=== PATIENT | female | born 1940 | race Caucasian/White ===

== ENCOUNTER 2018-07-22 08:57 | Day surgery (SDC) | payer BC, MEDICARE ==
[~2018-07-22 08:57] MED LIST: Buffered Lidocaine 1% SYRIN* 1 ML/SYRINGE INTRADERM ONE; Famotidine IV* 10 MG/ML 2 ML (20 mg) IV ONE; Lactated Ringers 1000 ML Bag* 1,000 ML IV SCH
[2018-07-22] MEDS ORDERED: Famotidine IV* 10 MG/ML 2 ML (20 mg) ONE (10:03)
[2018-07-22] MEDS ORDERED: Midazolam* 1 MG/ML 5 ML VIAL (5 MG) ONE (10:09)
[2018-07-22] MEDS ORDERED: fentaNYL* 50 MCG/ML 2 ML VIAL (100 MCG VIAL) ONE (10:09)
[2018-07-22] MEDS ORDERED: Benzocaine/Butamben/Tetracain (CETACAINE - SINGLE USE) 5 gm TOPICAL ONE (11:42)
[2018-07-22] MEDS ORDERED: Lidocaine 2% PF* 10 ML AMP ONE (11:43)
[2018-07-22] MEDS ORDERED: Lidocaine 1% INJ* 10 MG/ML 30 ML SDV ONE (12:07)
[2018-07-22] MEDS ORDERED: Lidocaine 2% JELLY* 20 ML (for OR use) ONE (12:07)
[2018-07-22] MEDS ORDERED: Lidocaine 4% TOPICAL* 50 ML TOP.SOLN ONE (12:10)
[2018-07-22] MEDS ORDERED: Midazolam* 1 MG/ML 2 ML VIAL (2 MG) ONE (12:26)
[2018-07-22] MEDS ORDERED: Ondansetron INJ* 2 MG/ML VIAL ONE (12:26)
[2018-07-22] MEDS ORDERED: Dexamethasone IV* 4 MG/ML 1 ML (4 MG) ONE (12:26)
[2018-07-22 15:26] VITALS: BP 120/68
--- NOTE | 2018-07-22 17:37 | PRO ---
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 ANESTHESIA: Conscious sedation. ANESTHESIOLOGIST: Dr. Robbins. DESCRIPTION OF PROCEDURE: Informed consent was obtained from the patient prior to the procedure after all the risks and benefits were thoroughly explained. Appropriate time-out was agreed on by the attending staff. A flexible Olympus bronchoscope was inserted through the right naris after adequate anesthesia with lidocaine was achieved using viscous lidocaine and lidocaine spray. The patient had significant epistaxis when bronchoscope was inserted through the right naris. Bronchoscope was withdrawn as this was affecting the patient's oxygenation. Once the patient's bleeding stopped and the patient was stabilized , bronchoscope was subsequently inserted through the mouth. Vocal cords were easily accessed and airway inspection was performed. No endobronchial lesions were noted. Thin secretions were noted, which were suctioned out. BAL was obtained from right middle lobe. Rest of the blood and blood clots were all suctioned out. The patient did not have any further bleeding while being monitored postprocedure. The patient was titrated off oxygen with O2 saturations 90% to 92% at rest. The patient subsequently was discharged home with appropriate discharge instructions accompanied by her son. [id number]/[facility] #: [id number] MTDD
== END 2018-07-22 15:29 | disposition home or self-care (01) ==
LOC: OR 08:57
PROVIDERS: ATTEND Internal Medicine
DX: J98.4 Other disorders of lung (principal); J47.9 Bronchiectasis, uncomplicated; J44.9 Chronic obstructive pulmonary disease, unspecified; I48.91 Unspecified atrial fibrillation; I42.9 Cardiomyopathy, unspecified; I27.20 Pulmonary hypertension, unspecified; I08.1 Rheumatic disorders of both mitral and tricuspid valves; G47.33 Obstructive sleep apnea (adult) (pediatric)
CPT/HCPCS: 87206; J1100; J2001; J2250; J2405; J3010

== ENCOUNTER 2019-08-07 07:39 | Inpatient (IN) ==
[2019-08-07 10:26] LABS: Calcium 9.7 mg/dL (8.6-10.3); EGFR African American 64.6 (>60); EGFR Non-African American 53.3 (>60); Potassium 4.6 mmol/L (3.5-5.0)
[2019-08-07] MEDS ORDERED: Potassium Chlor TAB* 40MEQ X 1 PRN K LEVEL PO (11:00)
[2019-08-07] MEDS ORDERED: DOFETILIDE 250 MCG PO SCH (11:00)
[2019-08-07] MEDS ORDERED: Bumetanide IV 0.25 MG/ML 4 ml VIAL (1 mg) SLOW PUSH ONE (11:02)
[2019-08-07] MEDS ORDERED: Bumetanide IV 0.25 MG/ML 10 ml VIAL (2.5 mg) SLOW PUSH ONE (12:00)
[2019-08-07] MEDS ORDERED: Albuterol 2.5mg/3 ml (0.083%) NEB.SOLN INH PRN (14:26)
[2019-08-07] MEDS: Rivaroxaban 20 mg TAB (*) PO SCH (17:36)
[2019-08-07] MEDS ORDERED: Metoprolol Tartrate 5 mg VIAL 5 ml VIAL (1 mg/ml) IV ONE ×2 (22:14→22:15)
[2019-08-07] MEDS ORDERED: Metoprolol Tartrate 5 mg VIAL 5 ml VIAL (1 mg/ml) ONE (23:21)
[2019-08-08 07:17] LABS: BUN/Creatinine Ratio 24.5 (8-20); Calcium 9.6 mg/dL (8.6-10.3); EGFR African American 66.1 (>60); EGFR Non-African American 54.6 (>60)
[2019-08-08] MEDS ORDERED: Potassium Chlor 20 meq TAB.ER PO ONE (09:45)
[2019-08-08] MEDS ORDERED: Bumetanide IV 0.25 MG/ML 10 ml VIAL (2.5 mg) SLOW PUSH ONE (10:00)
[2019-08-08 10:01] LABS: Magnesium 1.8 mg/dL (1.9-2.7)
[2019-08-08] MEDS ORDERED: Magnesium Sulfate IV 3 GM in NS 0.9% 100 ml BAG 100 ML IVPB ONE (10:32)
[2019-08-08] MEDS: Rivaroxaban 20 mg TAB (*) PO SCH (17:37)
[2019-08-09] MEDS ORDERED: Bumetanide IV 0.25 MG/ML 4 ml VIAL (1 mg) SLOW PUSH ONE (08:27)
[2019-08-09 08:46] LABS: BUN/Creatinine Ratio 23.2 (8-20); Calcium 9.6 mg/dL (8.6-10.3); EGFR African American 65.3 (>60); Magnesium 2.2 mg/dL (1.9-2.7); Potassium 4.3 mmol/L (3.5-5.0)
[2019-08-09] MEDS ORDERED: Naloxone 0.4 mg VIAL 0.4 mg/ml 1 ml VIAL ONE (11:05)
[2019-08-09] MEDS ORDERED: fentaNYL 100 mcg/2 ml 50 MCG/ML VIAL ONE (11:05)
[2019-08-09] MEDS ORDERED: Flumazenil 0.5 mg/5 ml 0.1 MG/ML 5 ml VIAL ONE (11:05)
[2019-08-09] MEDS ORDERED: Midazolam 5 mg/5 ml VIAL 1 mg/ml 5 ml VIAL (5 mg) ONE (11:05)
[2019-08-09] MEDS: Rivaroxaban 20 mg TAB (*) PO SCH (16:28)
[2019-08-10] MEDS ORDERED: Potassium Chlor 20 meq TAB.ER PO ONE (09:00)
[2019-08-10 09:06] LABS: BUN/Creatinine Ratio 22.6 (8-20); Calcium 9.6 mg/dL (8.6-10.3); EGFR African American 60.4 (>60); EGFR Non-African American 49.9 (>60); Magnesium 1.9 mg/dL (1.9-2.7)
[2019-08-10] MEDS ORDERED: Magnesium Sulfate 2 gm BAG 2 GM/50 ML BAG IVPB ONE (10:10)
[2019-08-10] MEDS: Rivaroxaban 15 mg TAB (*) PO SCH (17:06)
[2019-08-11 07:44] LABS: BUN/Creatinine Ratio 22.3 (8-20); Calcium 9.7 mg/dL (8.6-10.3); EGFR African American 56.6 (>60); EGFR Non-African American 46.8 (>60); Magnesium 2.2 mg/dL (1.9-2.7); Potassium 4.4 mmol/L (3.5-5.0)
[2019-08-11] MEDS ORDERED: Bumetanide IV 0.25 MG/ML 4 ml VIAL (1 mg) SLOW PUSH ONE ×2 (09:32→09:38)
[2019-08-11] MEDS ORDERED: Bumetanide IV 0.25 MG/ML 10 ml VIAL (2.5 mg) SLOW PUSH ONE (09:38)
[2019-08-11] MEDS: Rivaroxaban 15 mg TAB (*) PO SCH (17:51)
[2019-08-11] MEDS: Nitroglycerin 0.4 mg/hr PATCH (10 mg) TRANSDERM SCH (19:59)
[2019-08-12 06:46] LABS: BUN/Creatinine Ratio 21.1 (8-20); Calcium 9.4 mg/dL (8.6-10.3); EGFR African American 55.5 (>60); EGFR Non-African American 45.9 (>60); Magnesium 2.1 mg/dL (1.9-2.7)
[2019-08-12] MEDS: Nitro Patch/OINT Remove PATCH PATCH OFF SCH (07:58)
[2019-08-12] MEDS: Rivaroxaban 15 mg TAB (*) PO SCH (17:27)
[2019-08-12] MEDS: Nitroglycerin 0.4 mg/hr PATCH (10 mg) TRANSDERM SCH (20:05)
[2019-08-13 05:33] LABS: BUN/Creatinine Ratio 22.8 (8-20); Calcium 9.4 mg/dL (8.6-10.3); EGFR African American 55.5 (>60); EGFR Non-African American 45.9 (>60); Potassium 4.1 mmol/L (3.5-5.0)
[2019-08-13] MEDS: Nitro Patch/OINT Remove PATCH PATCH OFF SCH (08:00)
[2019-08-13] MEDS ORDERED: Potassium Chlor 20 meq TAB.ER PO ONE (12:00)
[2019-08-13 16:39] VITALS: BP 137/73
[2019-08-13] MEDS ORDERED: Nitroglycerin 0.4 mg/hr PATCH (10 mg) TRANSDERM ONE (18:00)
== END 2019-08-13 17:15 | disposition home or self-care (01) | DRG 949 ==
LOC: MEDTELE 08:57
PROVIDERS: ADMIT Specialist; ATTEND Internal Medicine